=== PATIENT | female | born 1985 | race Hispanic/Latino ===

== ENCOUNTER 2016-07-19 00:25 | Inpatient (IN) | payer MEDICAID ==
[~2016-07-19] VITALS: Ht 149.9 cm; Wt 75.3 kg
[~2016-07-19 00:25] MED LIST: HYDR-4003 PO; NOMED
[2016-07-19] MEDS ORDERED: Oxytocin 10 Unit/mL Inj IM PRN (11:15)
[2016-07-19] MEDS ORDERED: Lactated Ringer's 1,000 ML IV PRN (11:15)
[2016-07-19] MEDS ORDERED: Methylergonovine 0.2 mg/mL Inj IM PRN (11:15)
[2016-07-19] MEDS ORDERED: fentaNYL-PF 50 mCg/mL 2 mL Inj IVPUSH PRN (11:15)
[2016-07-19] MEDS ORDERED: Sodium Chloride LOK Flush 10 mL Syringe IVFLUSH PRN (11:15)
[2016-07-19] MEDS ORDERED: Carboprost 250 mCg/mL Inj IM PRN (11:15)
[2016-07-19] MEDS ORDERED: Hemorrhage Kit, Post Partum XX ONE (11:15)
[2016-07-19] MEDS ORDERED: Oxytocin 30 Units/500 mL LR 30 UNITS in IV Premix 1 EACH IV PRN (11:15)
[2016-07-19] MEDS ORDERED: Ondansetron 2 mg/mL 2 mL Inj IVPUSH PRN ×2 (11:15→18:35)
[2016-07-19 11:39] LABS: Mean Corpuscular Hemoglobin 29.1 pg (27.0-35.0); Mean Corpuscular Volume 87.7 fL (81-100)
--- NOTE | 2016-07-19 11:59 | HP ---
[address] [address] HISTORY AND PHYSICAL PATIENT: BALA DEMPSEY : 1985 MR#: [id number] ADMIT: 07/19/2016 JOB ID: [id number] DATE: 07/19/2016 HISTORY OF PRESENT ILLNESS: The patient is a 31-year-old, 5 para 4, at 41 weeks with estimated due date July 12, 2016, who comes to Labor and Delivery for induction of labor because of postdates . She has a prior history of four spontaneous vaginal deliveries. care was complicated by a depressive disorder for that she received sertraline 50 mg p.o. daily. It was discontinued two months ago since the patient felt that she is not depressed and she can handle the rest of the without SSRIs. She has been examined on July 12, 2016, and was found to be on cervical exam 3 cm dilated, 50% effaced, station -3. The patient presents with no complaints, having occasional contractions. heart rate tracing is reactive, category one. Good accelerations. Variability is mild to moderate. No decels. SOCIAL HISTORY: Patient denies smoking, alcohol, or illicit recreational drug use. FAMILY HISTORY: Noncontributory. ALLERGIES: NKDA. LABORATORIES: Reviewed. She is blood group and type O-positive, rubella immune, varicella immune. Group B strep culture was negative. PHYSICAL EXAMINATION: Vital signs: Blood pressure 112/76, temperature 36.6, respiratory rate 18, pulse 60. General appearance: Alert, awake, oriented x3. Pleasant female. Speaks a little Lao. HEENT: ANDRE. Chest/Lungs: Good respiratory effort. Clear bilaterally. Cardiovascular: Regular rate and rhythm. Abdomen is gravid, nondistended, nontender. Vaginal exam: There is bloody show, no discharge. The cervix is 3 cm dilated, station of the head -3, effacement 50%, no change from prior exam July 12, 2016. Extremities: No pitting edema. ASSESSMENT AND PLAN: The patient is a 31-year-old, 5, para 4, at 41 weeks 0 days, being admitted for postdates induction of labor. The cervix is favorable but only 3 cm dilated. Different methods of induction were discussed. Cervical ripening balloon was discussed, and the patient agrees for that option. Pain management will be provided with fentanyl and epidural as needed as per patient's request. labs were sent. IV hydration started with lactated Ringer at 125 mL/h. Will anticipate spontaneous vaginal delivery.
[2016-07-19] MEDS ORDERED: Lactated Ringer's 500 ML IV ONE (18:33)
[2016-07-19] MEDS ORDERED: Atropine 1 mg/10 mL (Code) Syringe IVPUSH PRN (18:35)
[2016-07-19] MEDS ORDERED: EPHEDrine Sulfate 50 mg/mL Inj IVPUSH PRN (18:35)
[2016-07-19] MEDS ORDERED: fentaNYL 2 mCg/mL-Bupiv 0.125% 100 ML EPIDURAL SCH (18:35)
[2016-07-19] MEDS: Lactated Ringer's 1,000 ML IV SCH ×3 (18:36→23:42)
[2016-07-19] MEDS ORDERED: Oxytocin 30 Units/500 mL LR Premix IV SCH (21:25)
[2016-07-20] MEDS: Sodium Chloride LOK Flush 10 mL Syringe IVFLUSH SCH ×3 (00:30→16:30)
[2016-07-20] MEDS: Lactated Ringer's 1,000 ML IV SCH ×3 (01:28→17:28)
[2016-07-20] MEDS ORDERED: Witch Hazel-Glycerin Pads TOPICAL PRN (01:30)
[2016-07-20] MEDS ORDERED: Oxytocin 10 Unit/mL Inj IM PRN (01:30)
[2016-07-20] MEDS ORDERED: Carboprost 250 mCg/mL Inj IM PRN (01:30)
[2016-07-20] MEDS ORDERED: Benzocaine (Dermoplast) 20% 60 Gm Spray TOPICAL PRN (01:30)
[2016-07-20] MEDS ORDERED: LANOlin HPA 7 Gm Ointment TOPICAL PRN (01:30)
[2016-07-20] MEDS ORDERED: Methylergonovine 0.2 mg/mL Inj IM PRN (01:30)
[2016-07-20] MEDS ORDERED: oxyCODONE-Acetamin 5-325 mg Tablet PO PRN (01:30)
[2016-07-20] MEDS ORDERED: Hemorrhage Kit, Post Partum XX ONE (01:30)
--- NOTE | 2016-07-20 02:49 | OP ---
[address] [address] OPERATIVE REPORT PATIENT: BALA DEMPSEY : 1985 MR#: [id number] ADMIT: 07/19/2016 JOB ID: [id number] DATE OF SURGERY: 07/20/2016 PREOPERATIVE DIAGNOSIS(ES): Postdates . Induction of labor POSTOPERATIVE DIAGNOSIS(ES): Status post spontaneous vaginal delivery at 41 weeks SURGEON: Janes Garcia MD DELIVERY SUMMARY: The patient is a 31-year-old, 5, para 5 now, who came to Labor and Delivery on the morning of July 19, 2016, for induction of labor because of post-dates . She was 41 weeks and her due date was July 12, 2016. The patient was 3 cm dilated, 50% effaced, station -3. Cook cervical ripening balloon was placed shortly after admission, came out at 3 p.m. At that time, she was 5 cm dilated, 70% effaced, station -3. Augmentation of labor with oxytocin was started. The membranes were intact. The patient had several late and variable decelerations in the evening at 10:00/11:00. She was examined, and at that time she was 9 cm dilated with bulging bag of membranes. Artificial rupture of membrane was done and moderate meconium was noted. Mechanical Integrity Engineer was notified and was present at delivery. The patient progressed to full dilation at 1:05 a.m., started pushing at the same time and underwent spontaneous vaginal delivery at 1:11 a.m. Delivered male with Apgars 7 at one minute and 9 at five minutes. Estimated blood loss 150 mL. The placenta was delivered at 1:14 a.m., was found to be intact with three-vessel cord. The patient did not have any lacerations. MTDD
[2016-07-20] MEDS: Ascorbic Acid 500 mg Tablet PO SCH ×2 (08:00→17:30)
--- NOTE | 2016-07-20 16:32 | PCM.DIOB ---
Obstetrical Disch Instruction Dates of Hospitalization Date of Hospital Admission July 19, 2016 at 08:32 Providers Admitting Physician: Debora Costa MD Primary Care Physician: Blas Attending Physician: Debora Costa MD Diet Discharge Diet: No restrictions Activity Discharge Activity-General: Pelvic Rest for 6 weeks, Be up and about, Balance rest and activity, Activity as pain allows, No lifting >15 pounds for 2 weeks Dressing and Incisional Care Hygiene: May shower, NO bathtub, hot tub or whirlpool, Perineal care, Sitz bath , Dermoplast spray, Witch Alejandra pads Additional Instructions Additional Instructions Please call with severe pain, temperature greater than 100.5 degrees, heavy vaginal bleeding greater than one pad per hour, malodorous discharge. Follow Up Plan Follow-up Provider (F9): Janes Garcia MD Follow-up appointment: Weeks (6) Call your provider for: Fever or Chills, Shortness of breath, Heavy vaginal bleeding Marisol Jose MD July 20, 2016 16:32
[2016-07-20] MEDS ORDERED: DOCU-41 PO (16:34)
[2016-07-20] MEDS ORDERED: IBUP800T28 PO (16:34)
[2016-07-20 16:45] VITALS: BP 112/58; PULSE 65
--- NOTE | 2016-07-20 22:22 | DIS ---
[address] [address] DISCHARGE SUMMARY PATIENT: BALA DEMPSEY : 1985 MR#: [id number] ADMIT: 07/19/2016 JOB ID: [id number] DIS: 07/20/2016 ADMISSION DIAGNOSES: 1. G5, P4, 41 weeks gestation admitted for induction of labor for post dates. 2. Depression. Previously on sertraline and not taking it at time of admission. 3. Grand multiparity. DISCHARGE DIAGNOSES: 1. G5, P4, 41 weeks gestation admitted for induction of labor for post dates. 2. Depression. Previously on sertraline and not taking it at time of admission. 3. Grand multiparity. PROCEDURES PERFORMED: Spontaneous vaginal delivery of a live born male , born on July 20, 2016 at 1:35 hours, weighing 7 pounds 11 ounces with Apgars of 7 at one minute and 9 at five minutes. REASON FOR ADMISSION AND HOSPITAL COURSE: This was a 31-year-old, G5, P4-0-0-4 female who presented at 41 weeks gestation for a planned induction of labor due to post dates. Her had been complicated by grand multiparity as well as depression previously on sertraline, but this had been discontinued eight weeks prior to admission. Her laboratory data showed a blood type of O positive, antibody screen negative, rubella immune, varicella immune, hep B surface antigen negative, RPR nonreactive, HIV negative, and GBS negative. She was admitted and her cervix was noted to be 3 cm dilated, and a cervical ripening balloon was placed and came out at 3 p.m. the same day. Pitocin was started per protocol and the patient was noted to have some late and variable decelerations, so she was checked and noted to be 9 cm dilated with a bulging bag of water. Artificial rupture of membranes was done and there was moderate meconium noted. She quickly progressed to complete following this, and then went on to deliver with spontaneous vaginal delivery. Please see the operative report for full details regarding this. , the patient did very well. She was requesting discharge home on the evening of day 0 when her pain was well controlled, she was tolerating regular diet, voiding and ambulating well on her own. Her lochia was minimal. As her had been cleared by Pediatrics to go home and she had social stressors including her four other children at home needing care, she was at this point in time, deemed stable for discharge. PHYSICAL EXAM: At the time of discharge, blood pressure is 112/58, her heart rate was 65, her temperature was 36.5. General: She is awake, alert, oriented, no acute distress. She is comfortable in her room. She is breast feeding her infant. The remainder of the exam was deferred at this time. INSTRUCTIONS AT DISCHARGE: The patient was advised to remain at pelvic rest for six weeks including no tampons, douching, or intercourse. She was asked to call with any signs or symptoms of infection including fever greater than 100.5 degrees, severe pain, malodorous vaginal discharge or bleeding more than one pad per hour. MEDICATIONS AT DISCHARGE: Included ibuprofen 800 mg p.o. q.8 h. p.r.n. pain, dispensed #60, as well as Colace 100 mg p.o. b.i.d. She was asked to continue her vitamins as prescribed. She was O positive, rubella immune, did not require any vaccinations, she had received both a Tdap and flu vaccine in . LABORATORY DATA: Collected at the time of admission showed a white count of 7.4, hemoglobin 12.1, and platelet count of 239. She was deemed stable for discharge on day 0.
== END 2016-07-20 19:17 | disposition home or self-care (01) | DRG 775 ==
LOC: FBC 08:32
PROVIDERS: ADMIT Obstetrics & Gynecology; ATTEND Legal Medicine
PROC: 3E0P7GC Introduction of Other Therapeutic Substance into Female Reproductive, Via Natural or Artificial Opening (ICD-10-PCS; 2016-07-19)
PROC: 10E0XZZ Delivery of Products of Conception, External Approach (ICD-10-PCS; principal; 2016-07-20)
PROC: 10907ZC Drainage of Amniotic Fluid, Therapeutic from Products of Conception, Via Natural or Artificial Opening (ICD-10-PCS; 2016-07-20)
DX: O48.0 Post-term pregnancy (principal); O77.0 Labor and delivery complicated by meconium in amniotic fluid; O76 Abnormality in fetal heart rate and rhythm complicating labor and delivery; Z3A.41 41 weeks gestation of pregnancy; Z37.0 Single live birth